=== PATIENT | male | born 1950 | race Caucasian/White ===

== ENCOUNTER 2020-01-16 23:01 | Inpatient (IN) | payer OTHER, MEDICARE ==
[~2020-01-16] VITALS: Ht 165.1 cm; Wt 62.7 kg
[~2020-01-16 23:01] MED LIST: HYDROCODONE BIT1 T11 PO
[2020-01-16 23:06] VITALS: BP 129/100
[2020-01-16 23:43] LABS: BASO # 0.1 10*3/uL (0.0-0.1); BASO % 0.5 % (0.0-1.0); EOS % 0.1 % (1.0-4.0); HEMATOCRIT 50.5 % (42.0-52.0); HEMOGLOBIN 17.6 g/dl (14.0-18.0); LYMPH # 1.1 10*3/uL (1.3-4.4); LYMPH % 8.7 % (27.0-41.0); MEAN CELL VOLUME 84.2 fl (80.0-94.0); MEAN CORPUSCULAR HGB 29.3 pg (27.0-31.0); MEAN CORPUSCULAR HGB CONC 34.9 g/dl (33.0-37.0); MONO # 0.6 10*3/uL (0.1-1.0); MONO % 5.2 % (3.0-9.0); NEUT # 10.3 10*3/uL (2.3-7.9); NEUT % 85.1 % (47.0-73.0); PLATELET COUNT AUTOMATED 483 10*3/uL (130-400); RED CELL DISTRI WIDTH 12.9 % (0-14.5); WHITE BLOOD COUNT 12.1 10*3/uL (4.8-10.8)
[2020-01-16 23:58] LABS: BILIRUBIN NEGATIVE (NEGATIVE); BLOOD TRACE-INTACT (NEGATIVE); CLARITY CLEAR (CLEAR); COLOR YELLOW (YELLOW); GLUCOSE NEGATIVE (NEGATIVE); KETONE 2+ (NEGATIVE); SPECIFIC GRAVITY 1.025 (1.005-1.030)
[2020-01-16 23:58] LABS: ALBUMIN 3.8 gm/dl (3.1-4.5); ALKALINE PHOSPHATASE 95 U/L (45-117); BUN 20 mg/dl (7-24); CHLORIDE 95 mmol/L (98-107); CREATININE 1.02 mg/dL (0.70-1.30); LIPASE 75 U/L (73-393); POTASSIUM 3.9 mmol/L (3.5-5.1); SGOT/AST 14 IU/L (3-35); SGPT/ALT 17 U/L (12-78); SODIUM 137 mmol/L (136-145); TOTAL PROTEIN 7.8 gm/dL (6.4-8.2)
[2020-01-16 23:59] LABS: LEUKO ESTERASE NEGATIVE (NEGATIVE); NITRITE NEGATIVE (NEGATIVE); UROBILINOGEN 0.2 E.U./dl (0.2-1.0)
[2020-01-17 02:50] VITALS: BP 107/83
[2020-01-17 03:00] VITALS: BP 144/91
[2020-01-17] MEDS ORDERED: DEXILANT60 M1 PO (03:16)
[2020-01-17] MEDS ORDERED: OXYCODONE HCL5 MG PO (03:17)
[2020-01-17 06:39] LABS: BASO % 0.2 % (0.0-1.0); HEMOGLOBIN 17.1 g/dl (14.0-18.0); LYMPH # 0.8 10*3/uL (1.3-4.4); MEAN CELL VOLUME 85.2 fl (80.0-94.0); MEAN CORPUSCULAR HGB 29.7 pg (27.0-31.0); MEAN CORPUSCULAR HGB CONC 34.9 g/dl (33.0-37.0); MEAN PLATELET VOLUME 9.2 fl (9.6-12.3); MONO # 0.6 10*3/uL (0.1-1.0); MONO % 5.4 % (3.0-9.0); NEUT # 8.7 10*3/uL (2.3-7.9); NEUT % 85.9 % (47.0-73.0); PLATELET COUNT AUTOMATED 446 10*3/uL (130-400); RED BLOOD COUNT 5.75 10*6/uL (4.50-5.90); RED CELL DISTRI WIDTH 12.9 % (0-14.5); WHITE BLOOD COUNT 10.1 10*3/uL (4.8-10.8)
[2020-01-17 07:03] LABS: BUN 24 mg/dl (7-24); CHLORIDE 95 mmol/L (98-107); CREATININE 1.06 mg/dL (0.70-1.30); PHOSPHOROUS 5.3 mg/dL (2.5-4.9); POTASSIUM 3.4 mmol/L (3.5-5.1); SODIUM 135 mmol/L (136-145)
[2020-01-17 08:00] VITALS: BP 144/80
[2020-01-17 12:00] VITALS: BP 144/90
[2020-01-17 16:00] VITALS: BP 133/93
[2020-01-17 20:00] VITALS: BP 138/80
[2020-01-18] VITALS: BP 150/82
[2020-01-18 06:27] LABS: BASO % 0.2 % (0.0-1.0); HEMATOCRIT 49.1 % (42.0-52.0); HEMOGLOBIN 16.8 g/dl (14.0-18.0); LYMPH # 0.9 10*3/uL (1.3-4.4); MEAN CELL VOLUME 84.8 fl (80.0-94.0); MEAN CORPUSCULAR HGB CONC 34.2 g/dl (33.0-37.0); MEAN PLATELET VOLUME 8.9 fl (9.6-12.3); MONO # 0.8 10*3/uL (0.1-1.0); NEUT # 11.4 10*3/uL (2.3-7.9); NEUT % 86.4 % (47.0-73.0); PLATELET COUNT AUTOMATED 448 10*3/uL (130-400); RED BLOOD COUNT 5.79 10*6/uL (4.50-5.90); RED CELL DISTRI WIDTH 12.9 % (0-14.5); WHITE BLOOD COUNT 13.2 10*3/uL (4.8-10.8)
[2020-01-18 07:00] LABS: BUN 31 mg/dl (7-24); CHLORIDE 96 mmol/L (98-107); CREATININE 1.03 mg/dL (0.70-1.30); POTASSIUM 3.1 mmol/L (3.5-5.1); SODIUM 139 mmol/L (136-145)
[2020-01-18 08:00] VITALS: BP 150/88
[2020-01-18 08:21] LABS: INTERNATIONAL NORM RATIO 1.2 (2.0-3.5)
[2020-01-18 12:00] VITALS: BP 154/90
[2020-01-18 16:00] VITALS: BP 136/88
[2020-01-18 20:00] VITALS: BP 156/90
[2020-01-19] VITALS: BP 142/100
[2020-01-19 06:52] LABS: BASO % 0.1 % (0.0-1.0); EOS % 0.1 % (1.0-4.0); HEMOGLOBIN 16.8 g/dl (14.0-18.0); LYMPH # 1.2 10*3/uL (1.3-4.4); LYMPH % 7.4 % (27.0-41.0); MEAN CELL VOLUME 85.9 fl (80.0-94.0); MEAN CORPUSCULAR HGB 28.9 pg (27.0-31.0); MEAN CORPUSCULAR HGB CONC 33.6 g/dl (33.0-37.0); MEAN PLATELET VOLUME 9.2 fl (9.6-12.3); MONO # 1.1 10*3/uL (0.1-1.0); NEUT # 13.2 10*3/uL (2.3-7.9); NEUT % 84.8 % (47.0-73.0); PLATELET COUNT AUTOMATED 464 10*3/uL (130-400); RED BLOOD COUNT 5.82 10*6/uL (4.50-5.90); RED CELL DISTRI WIDTH 12.8 % (0-14.5); WHITE BLOOD COUNT 15.6 10*3/uL (4.8-10.8)
[2020-01-19 06:56] LABS: BUN 32 mg/dl (7-24); CHLORIDE 94 mmol/L (98-107); CREATININE 0.91 mg/dL (0.70-1.30); SODIUM 136 mmol/L (136-145)
[2020-01-19 08:00] VITALS: BP 149/93
[2020-01-19 12:00] VITALS: BP 144/90
[2020-01-19 16:00] VITALS: BP 125/90
[2020-01-19 20:00] VITALS: BP 144/90
[2020-01-20] VITALS: BP 141/77
[2020-01-20 06:06] LABS: BASO % 0.1 % (0.0-1.0); EOS % 0.1 % (1.0-4.0); HEMATOCRIT 47.8 % (42.0-52.0); HEMOGLOBIN 16.1 g/dl (14.0-18.0); LYMPH # 1.4 10*3/uL (1.3-4.4); LYMPH % 7.7 % (27.0-41.0); MEAN CELL VOLUME 85.8 fl (80.0-94.0); MEAN CORPUSCULAR HGB 28.9 pg (27.0-31.0); MEAN CORPUSCULAR HGB CONC 33.7 g/dl (33.0-37.0); MEAN PLATELET VOLUME 9.4 fl (9.6-12.3); MONO # 1.4 10*3/uL (0.1-1.0); NEUT # 14.8 10*3/uL (2.3-7.9); NEUT % 83.6 % (47.0-73.0); PLATELET COUNT AUTOMATED 448 10*3/uL (130-400); RED BLOOD COUNT 5.57 10*6/uL (4.50-5.90); RED CELL DISTRI WIDTH 12.7 % (0-14.5); WHITE BLOOD COUNT 17.6 10*3/uL (4.8-10.8)
[2020-01-20 06:18] LABS: BUN 35 mg/dl (7-24); CHLORIDE 87 mmol/L (98-107); CREATININE 0.97 mg/dL (0.70-1.30); POTASSIUM 2.5 mmol/L (3.5-5.1); SODIUM 134 mmol/L (136-145)
[2020-01-20 08:00] VITALS: BP 130/92
[2020-01-20 12:00] VITALS: BP 134/87
[2020-01-20 15:31] VITALS: BP 120/77
[2020-01-20 20:00] VITALS: BP 116/71
[2020-01-21] VITALS (7 sets, daily range): BP systolic 112–129; BP diastolic 67–79
[2020-01-21 06:20] LABS: BASO % 0.1 % (0.0-1.0); EOS # 0.1 10*3/uL (0.0-0.4); EOS % 0.3 % (1.0-4.0); HEMATOCRIT 44.2 % (42.0-52.0); HEMOGLOBIN 14.8 g/dl (14.0-18.0); LYMPH # 1.2 10*3/uL (1.3-4.4); LYMPH % 7.8 % (27.0-41.0); MEAN CELL VOLUME 87.4 fl (80.0-94.0); MEAN CORPUSCULAR HGB 29.2 pg (27.0-31.0); MEAN CORPUSCULAR HGB CONC 33.5 g/dl (33.0-37.0); MEAN PLATELET VOLUME 9.5 fl (9.6-12.3); MONO # 1.3 10*3/uL (0.1-1.0); MONO % 8.5 % (3.0-9.0); NEUT # 12.3 10*3/uL (2.3-7.9); NEUT % 82.9 % (47.0-73.0); PLATELET COUNT AUTOMATED 371 10*3/uL (130-400); RED BLOOD COUNT 5.06 10*6/uL (4.50-5.90); RED CELL DISTRI WIDTH 12.8 % (0-14.5); WHITE BLOOD COUNT 14.8 10*3/uL (4.8-10.8)
[2020-01-21 06:29] LABS: ALBUMIN 3.2 gm/dl (3.1-4.5); ALKALINE PHOSPHATASE 71 U/L (45-117); BUN 37 mg/dl (7-24); CHLORIDE 90 mmol/L (98-107); CREATININE 0.76 mg/dL (0.70-1.30); SGOT/AST 18 IU/L (3-35); SGPT/ALT 16 U/L (12-78); TOTAL PROTEIN 6.1 gm/dL (6.4-8.2)
[2020-01-21 06:37] LABS: SODIUM 137 mmol/L (136-145)
[2020-01-21 06:39] LABS: POTASSIUM 2.4 mmol/L (3.5-5.1)
[2020-01-22] VITALS: BP 127/80
[2020-01-22 06:37] LABS: BASO % 0.1 % (0.0-1.0); EOS # 0.1 10*3/uL (0.0-0.4); EOS % 0.4 % (1.0-4.0); HEMATOCRIT 47.6 % (42.0-52.0); HEMOGLOBIN 15.6 g/dl (14.0-18.0); LYMPH # 1.1 10*3/uL (1.3-4.4); LYMPH % 6.6 % (27.0-41.0); MEAN CELL VOLUME 90.3 fl (80.0-94.0); MEAN CORPUSCULAR HGB 29.6 pg (27.0-31.0); MEAN CORPUSCULAR HGB CONC 32.8 g/dl (33.0-37.0); MEAN PLATELET VOLUME 9.9 fl (9.6-12.3); MONO # 1.2 10*3/uL (0.1-1.0); MONO % 7.2 % (3.0-9.0); NEUT # 13.6 10*3/uL (2.3-7.9); NEUT % 85.1 % (47.0-73.0); PLATELET COUNT AUTOMATED 379 10*3/uL (130-400); RED BLOOD COUNT 5.27 10*6/uL (4.50-5.90); RED CELL DISTRI WIDTH 12.7 % (0-14.5)
[2020-01-22 07:03] LABS: CHLORIDE 90 mmol/L (98-107); POTASSIUM 2.8 mmol/L (3.5-5.1); SODIUM 139 mmol/L (136-145)
[2020-01-22 07:10] LABS: ALBUMIN 3.3 gm/dl (3.1-4.5); ALKALINE PHOSPHATASE 80 U/L (45-117); BUN 39 mg/dl (7-24); CREATININE 0.85 mg/dL (0.70-1.30); SGOT/AST 22 IU/L (3-35); SGPT/ALT 16 U/L (12-78); TOTAL PROTEIN 6.7 gm/dL (6.4-8.2)
[2020-01-22 08:00] VITALS: BP 128/72
[2020-01-22 12:00] VITALS: BP 122/70
[2020-01-22 16:00] VITALS: BP 126/66
[2020-01-22 20:00] VITALS: BP 139/68
[2020-01-23] VITALS (7 sets, daily range): BP systolic 120–141; BP diastolic 80–92
[2020-01-23 06:28] LABS: BASO % 0.1 % (0.0-1.0); EOS % 0.2 % (1.0-4.0); HEMATOCRIT 46.9 % (42.0-52.0); HEMOGLOBIN 15.3 g/dl (14.0-18.0); LYMPH # 1.3 10*3/uL (1.3-4.4); LYMPH % 6.8 % (27.0-41.0); MEAN CORPUSCULAR HGB CONC 32.6 g/dl (33.0-37.0); MEAN PLATELET VOLUME 9.8 fl (9.6-12.3); MONO # 1.3 10*3/uL (0.1-1.0); MONO % 6.9 % (3.0-9.0); NEUT # 15.9 10*3/uL (2.3-7.9); NEUT % 85.3 % (47.0-73.0); PLATELET COUNT AUTOMATED 416 10*3/uL (130-400); RED BLOOD COUNT 5.27 10*6/uL (4.50-5.90); RED CELL DISTRI WIDTH 12.6 % (0-14.5); WHITE BLOOD COUNT 18.6 10*3/uL (4.8-10.8)
[2020-01-23 07:03] LABS: BUN 48 mg/dl (7-24); CHLORIDE 84 mmol/L (98-107); POTASSIUM 2.9 mmol/L (3.5-5.1); SODIUM 141 mmol/L (136-145)
== END 2020-01-23 18:30 | disposition short-term general hospital (02) | DRG 327 ==
LOC: ED 23:01 → 4E 01-17 02:26 → EDHOLD 01-17 02:26 → 4E 01-17 02:35
PROVIDERS: Family Medicine; Internal Medicine; Physician Assistant; Student in an Organized Health Care Education/Training Program; ADMIT Emergency Medicine
DX: K29.01 Acute gastritis with bleeding (principal); E87.2 Acidosis; R65.10 Systemic inflammatory response syndrome (SIRS) of non-infectious origin without acute organ dysfunction; K31.1 Adult hypertrophic pyloric stenosis; C15.9 Malignant neoplasm of esophagus, unspecified; K22.10 Ulcer of esophagus without bleeding; K92.0 Hematemesis; R73.9 Hyperglycemia, unspecified; R80.9 Proteinuria, unspecified; R82.4 Acetonuria; D47.3 Essential (hemorrhagic) thrombocythemia; G62.0 Drug-induced polyneuropathy; K44.9 Diaphragmatic hernia without obstruction or gangrene; Z92.3 Personal history of irradiation; Z92.21 Personal history of antineoplastic chemotherapy; R94.31 Abnormal electrocardiogram [ECG] [EKG]; E87.6 Hypokalemia; K57.90 Diverticulosis of intestine, part unspecified, without perforation or abscess without bleeding; E87.8 Other disorders of electrolyte and fluid balance, not elsewhere classified; E83.41 Hypermagnesemia; E80.6 Other disorders of bilirubin metabolism; K29.80 Duodenitis without bleeding; K31.89 Other diseases of stomach and duodenum; I49.9 Cardiac arrhythmia, unspecified; Z79.899 Other long term (current) drug therapy; T45.1X5A Adverse effect of antineoplastic and immunosuppressive drugs, initial encounter; Y92.89 Other specified places as the place of occurrence of the external cause